=== PATIENT | female | born 2000 | race Caucasian/White ===

== ENCOUNTER → 2024-01-24 11:25 | Outpatient (REF) | payer BC, SELFPAY | LOC: RAD 11:25 | PROVIDERS: ATTENDING PHYSICIAN Nurse Practitioner Family; FAMILY PHYSICIAN Nurse Practitioner Family | DX: Z87.891 Personal history of nicotine dependence (principal) | CPT/HCPCS: 71046 ==

== ENCOUNTER → 2024-08-20 16:35 | Outpatient (REF) | payer BC, SELFPAY | LOC: RAD 16:35 | PROVIDERS: ATTENDING PHYSICIAN Nurse Practitioner Family; FAMILY PHYSICIAN Family Medicine | DX: M53.3 Sacrococcygeal disorders, not elsewhere classified (principal) | CPT/HCPCS: 72220 ==

== ENCOUNTER 2024-12-14 16:21 | Emergency (ER) | payer BC, SELFPAY ==
[2024-12-14 16:26] VITALS: BP 143/101
[2024-12-14 16:49] VITALS: BMI 19.4
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
[2024-12-14] MEDS: DILAUDID 0.5 MG IV ×2 (16:54→17:51)
[2024-12-14] MEDS: NSS 1000 IV (16:55)
[2024-12-14 16:58] VITALS: BP 135/95
[2024-12-14 17:14] LABS: Hematocrit 44.4 % (37.0-47.0); Hemoglobin 15.7 g/dL (12.0-16.0); Mean Corp Hgb Conc. 35.4 g/dL (33.0-37.0); Mean Corpuscular Volume 87.2 fL (81.0-99.0); Nucleated Red Blood Cells % 0 %; Platelet Count 309 10^3/uL (130-400); Red Cell Dist. Width 11.9 % (11.5-14.5)
[2024-12-14 17:26] LABS: HCG, Serum Qualitative Screen Negative
[2024-12-14 17:31] LABS: ALT (SGPT) 16 U/L (0-35); AST (SGOT) 26 U/L (14-36); Albumin 5.2 g/dl (3.5-5.0); Alkaline Phosphatase 52 U/L (38-126); Blood Urea Nitrogen 10 mg/dl (7-17); Calcium 9.8 mg/dl (8.4-10.2); Carbon Dioxide 19 mmol/L (22-30); Chloride 105 mmol/L (98-107); Estimated Creatinine Clearance 88 ml/min; Glucose 113 mg/dl (70-99); Potassium 4.0 mmol/L (3.5-5.1); Sodium 138 mmol/L (135-145); Total Protein 8.1 g/dl (6.3-8.2); eGFR > 60.00
[2024-12-14] MEDS: NSS 500 IV (17:56)
[2024-12-14 20:00] VITALS: BP 132/74
== END 2024-12-14 20:00 | disposition other institution (70) ==
LOC: EMR 16:21
PROVIDERS: EMERGENCY PHYSICIAN Emergency Medicine; FAMILY PHYSICIAN Family Medicine
DX: T20.20XA Burn of second degree of head, face, and neck, unspecified site, initial encounter (principal); T21.21XA Burn of second degree of chest wall, initial encounter; T22.112A Burn of first degree of left forearm, initial encounter; X13.1XXA Other contact with steam and other hot vapors, initial encounter
CPT/HCPCS: 99283; 96374; 96376; 96361; 80053; 84703; 85025

== ENCOUNTER 2024-12-29 01:14 | Emergency (ER) | payer BC, SELFPAY ==
[2024-12-29 01:20] VITALS: BP 119/83
[2024-12-29 02:00] VITALS: BP 122/68
--- NOTE | 2024-12-29 02:00 | ED.GENMED ---
History of Present Illness
General
Chief Complaint: Abdominal Pain
Source: patient
Exam Limitations: none
Time Seen by Provider: 12/29/24 01:38
Nursing documentation reviewed up to this point in time: agreed with
History of Present Illness
History of Present Illness:
Patient presents to ED secondary to sudden onset of lower abdominal pain with nausea sensation, while she was at home, approximately 4 hours prior to arrival. Abdominal pain described as sharp, nonradiating, without any alleviating or exacting
factors. Patient has taken Motrin at home, with mildly improving symptoms. Denies trauma. Denies fever or chills. Denies previous history of similar symptoms. Denies recent illness. Patient states that she is about to start her monthly
menstrual cycle.
Past History
Past History
ED Past Medical History: None
ED Past Surgical History: None
Social History
Tobacco: Non-smoker
Alcohol: Other
Drug: None
Personal: Other
Living: with family
Employment: Other
Family History
Family History: Other
Review of Systems
Review of Systems
Allergies reviewed?: Yes
All Other Systems: ROS reviewed and negative except as documented in HPI and ROS
Constitutional: Reports no symptoms; Denies fever
ABD/GI: Reports abdominal pain and nausea; Denies vomiting
: Reports no symptoms; Denies bleeding
Musculoskeletal: Reports no symptoms
Skin: Reports no symptoms
Neurological: Reports no symptoms
Phy Exam
Physical Exam
Physical Exam:
Physical Exam
General: no apparent distress, not acutely ill. afebrile
Head: nc/at. eomi
Neck: supple. no meningeal signs.
Abdomen: normal bowel sounds. mild suprapubic tenderness to palpation
Neuro: alert and oriented x 3. no focal neurological deficits
Skin: no rash
Psychiatric: well kept. interactive and cooperative
Extremities: no edema. no calf tenderness.
Course
Orders/Labs/Results
Orders:
Orders
12/29/24 01:52
Test Result ONCE
US Pelvis W Transvag Combined Urgent
Comment:
Reason For Exam: right lower/suprapubic pain
12/29/24 01:58
, Urine Qualitative Screen [HCG, Urine Qualitative Screen] Urgent
Date Specimen was Collected: 12/29/24
Time Specimen was Collected: 01:56
Urinalysis Reflex To Culture Urgent
Date Specimen was Collected: 12/29/24
Time Specimen was Collected: 01:56
Vital Signs
Initial and Last Documented VS:
Initial Vital Signs
Temp Pulse Resp BP Pulse Ox
99 F 82 16 119/83 97
12/29/24 01:20 12/29/24 01:20 12/29/24 01:20 12/29/24 01:20 12/29/24 01:20
Last Documented Vital Signs
Temp Pulse Resp BP Pulse Ox
99 F 83 16 111/78 100
12/29/24 01:20 12/29/24 02:00 12/29/24 02:00 12/29/24 03:00 12/29/24 03:00
MDM/Problems Addressed
MDM/Problems Addressed:
History, exam, and pelvic ultrasound consistent with ruptured ovarian cyst. Fortunately, patient remains afebrile, hemodynamically stable, and without significant distress. As such, patient will be discharged home in stable condition, to the care
of her family, with recommendations to take NSAIDs for symptomatic relief, along with PCP/[facility] follow-up as an outpatient. Advised to return to ED with worsening symptoms.
*Pulse Oximetry
SaO2: 97
Oxygen Mode of Delivery: Room air
Patient hypoxic: no
*Critical Care Note
Total Time (30-74mins, 75-104mins- exclusive of procedures): Not Applicable
ED Attending Note
-
Portions of this chart may have been created with voice recognition software.� Occasional wrong word or��sound alike� substitutions may have occurred due to the inherent limitations of voice recognition software.
Discharge Plan
Departure
Patient Disposition: Home (Routine Discharge)
Date of Disposition: 12/29/24
Time of Disposition: 03:13
Patient with high blood pressure during this ER visit?: No
Discharge Problem:
Ovarian cyst rupture
Instructions: Ovarian Cyst (DC)
Referrals:
Ford Quintanilla DO [Family Provider, Family Practice]
Activity Restrictions/Additional Instructions:
As discussed, please follow-up with your primary care physician and/or [facility] physician with any further concerns. Please consider return to ED with worsening symptoms.
Interventions
Interventions:
*Risk Screen - Suicide Last Done: 12/29/24 01:20
*General Assessment Last Done: 12/29/24 01:20
*Neglect/Abuse Screening Last Done: 12/29/24 01:20
*ED- Fall Risk Assessment Last Done: 12/29/24 02:04
*ED COVID-19 Vaccine History Last Done: 12/29/24 02:04
*Nursing Disposition Last Done: 12/29/24 03:22
AV-Psrptx-Zzovqwbvlz Assessment Last Done: 12/29/24 02:04
Discharge Date and Time
Discharge Date/Time: 12/29/24 03:23
Print Language: TANZANIAN
[2024-12-29 02:06] LABS: Urine Character Clear (Clear)
[2024-12-29 02:11] LABS: HCG, Urine Qualitative Screen Negative
[2024-12-29 03:00] VITALS: BP 111/78
== END 2024-12-29 03:23 | disposition home or self-care (01) ==
LOC: EMR 01:14
PROVIDERS: EMERGENCY PHYSICIAN Emergency Medicine; FAMILY PHYSICIAN Family Medicine
DX: N83.201 Unspecified ovarian cyst, right side (principal)
CPT/HCPCS: 99284; 76830; 76856; 81003; 81025